=== PATIENT | female | born 1985 | race Two or more races ===

== ENCOUNTER → 2024-04-18 | Emergency (ER) | payer OTHER ==
[~2024-04-18] VITALS: Ht 167.6 cm; Wt 72.6 kg
[~2024-04-18] MED LIST: VALACYCLOVIR1000 MG PO
== END | disposition home or self-care (01) ==
LOC: ER 14:50
DX: B02.39 Other herpes zoster eye disease (principal)

== ENCOUNTER → 2025-06-07 | Emergency (ER) | payer OTHER ==
[~2025-06-07] VITALS: Ht 167.6 cm; Wt 70.8 kg
[~2025-06-07] MED LIST changes: +DEXAMETHASONE SODIUM PHOSPHATE 4 MG/ML VIAL IM ONE; +KETOROLAC TROMETHAMINE 60 MG VIAL IM ONE
[2025-06-07 23:32] VITALS: BP 127/85; O2SAT 99
== END | disposition left against medical advice (07) ==
LOC: ER 22:12
DX: T14.8XXA Other injury of unspecified body region, initial encounter (principal); W08.XXXA Fall from other furniture, initial encounter; Y93.89 Activity, other specified; Y92.018 Other place in single-family (private) house as the place of occurrence of the external cause; Y99.9 Unspecified external cause status